=== PATIENT | male | born 1955 | race Caucasian/White ===

== ENCOUNTER 2019-11-24 15:18 | Inpatient (IN) | payer OTHER ==
--- NOTE | 2019-11-24 16:03 | BHS.RME ---
Substance Use & Tx History - Substance Use History Alcohol Substance amount: 6 nips Frequency of use: Daily Substance route: Oral Physical/Psych/Mental Status - Behavior General Behavior: Increased activity (restlessness, agitation) Eye Contact: Normal - Cooperativeness Cooperativeness: Cooperative - Thinking Thought Processes: Tight Thought content: Future oriented - Physical Health Problems Is patient presently having any pain?: No Does patient presently have any injuries (include location): No Does patient currently have a fever: No CIWA Nausea/Vomitin-No Nausea/No Vomiting Muscle Tremors: None Anxiety: 0-No Anxiety, at Ease Agitation: 0-Normal Activity Paroxysmal Sweats: No Perspiration Orientation: 0-Oriented Tacttile Disturbances: 0-None Auditory Disturbances: 0-None Visual Disturbances: 0-None Headache: 0-None Present CIWA-Ar Total Score: 0
--- NOTE | 2019-11-24 16:56 | HP ---
CIWA Score Nausea/Vomitin-No Nausea/No Vomiting Muscle Tremors: None Anxiety: 0-No Anxiety, at Ease Agitation: 0-Normal Activity Paroxysmal Sweats: No Perspiration Orientation: 0-Oriented Tacttile Disturbances: 0-None Auditory Disturbances: 0-None Visual Disturbances: 0-None Headache: 0-None Present CIWA-Ar Total Score: 0 - Admission Criteria [facility] Guidelines: Admission for Medically Managed Detox: Requires at least one of the followin. CIWA greater than 12 2. Seizures within the past 24 hours 3. Delirium tremens within the past 24 hours 4. Hallucinations within the past 24 hours 5. Acute intervention needed for co occurring medical disorder 6. Acute intervention needed for co occurring psychiatric disorder 7. Severe withdrawal that cannot be handled at a lower level of care (continued vomiting, continued diarrhea, abnormal vital signs) requiring intravenous medication and/or fluids 8. Admission ROS [facility] Chief Complaint: drinking too much Allergies/Adverse Reactions: Allergies Allergy/AdvReac Type Severity Reaction Status Date / Time No Known Allergies Allergy Verified 11/24/19 17:26 History of Present Illness: Patient is a 64 y/o male with past medical history of HTN who presents for detox from alcohol. Patient began drinking at age 14 and drinks 5-7 nips a day. Never more then 10. Last drink was yesterday. 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 Reports he has been sober in the past but then he starts drinking again. Patient states he has never been to rehab or detox before. Patient denies other drug use, denies smoking. Patients surgical history includes left hand and right hand. 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 Patient has medical comorbidities complicating his detox. Exam Limitations: No Limitations - Review of Systems Constitutional: Other (denies chills, fever, headache) EENT: reports: Other (denies tinnitus, visual problems) Respiratory: denies: Cough, Shortness of Breath, Wheezing Cardiac: denies: Chest Pain, Lightheadedness GI: denies: Diarrhea, Nausea, Vomiting Musculoskeletal: denies: Muscle Pain Neuro: denies: Seizure, Dizziness Hematology: denies: Anemia Psychiatric: denies: Depressed Patient History - Patient Medical History Hx Anemia: No Hx Asthma: No Hx Chronic Obstructive Pulmonary Disease (COPD): No Hx Cancer: No Hx Cardiac Disorders: No Hx Congestive Heart Failure: No Hx Hypertension: Yes Hx Hypercholesterolemia: No Hx Pacemaker: No HX Cerebrovascular Accident: No Hx Seizures: No Hx Dementia: No Hx Diabetes: No Hx Gastrointestinal Disorders: No Hx Liver Disease: No Hx Genitourinary Disorders: No Hx Sexually Transmitted Disorders: No Hx Renal Disease (ESRD): No Hx Thyroid Disease: No Hx Human Immunodeficiency Virus (HIV): No Hx Hepatitis C: No Hx Depression: No Hx Suicide Attempt: No Hx Bipolar Disorder: No Hx Schizophrenia: No - Patient Surgical History Past Surgical History: Yes Hx Neurologic Surgery: No Hx Cataract Extraction: No Hx Cardiac Surgery: No Hx Lung Surgery: No Hx Breast Surgery: No Hx Breast Biopsy: No Hx Abdominal Surgery: No Hx Appendectomy: No Hx Cholecystectomy: No Hx Genitourinary Surgery: No Hx Section: No Hx Orthopedic Surgery: Yes (left hand, right leg) Hx Hysterectomy: No Anesthesia Reaction: No - PPD History Previous Implant?: Yes (patient had vaccine in past so has positive tests) Documented Results: Positive w/o proof Implanted On Prior [facility] Admission?: No PPD to be Administered?: No - Smoking Cessation Smoking history: Never smoked - Substance & Tx. History Hx Alcohol Use: Yes (6 nips a day) - Substances abused Alcohol Substance route: Oral Frequency: Daily Amount used: 2 to 3 ounces Age of first use: 14 Date of last use: 11/23/19 Admission Physical Exam [facility] - Physical General Appearance: Yes: No Apparent Distress, Appropriately Dressed HEENTM: Yes: Normocephalic Respiratory: Yes: Normal Breath Sounds, No Respiratory Distress, No Accessory Muscle Use Neck: Yes: Trachea in good position Cardiology: Yes: Regular Rhythm, Regular Rate Abdominal: Yes: Normal Bowel Sounds, Flat Back: Yes: Normal Inspection Musculoskeletal: Yes: Within Normal Limits, full range of Motion Extremities: No: Pedal Edema Neurological: Yes: Fully Oriented, Alert, Normal Mood/Affect Lymphatic: Yes: Within Normal Limits - Diagnostic (1) Alcohol withdrawal Current Visit: Yes Status: Acute (2) Hypertension Current Visit: Yes Status: Acute Cleared for Admission S - Detox or Rehab [facility] Level of Care: Medically Managed Detox Regimen/Protocol: Librium Breathalyzer - Breathalyzer Breathalyzer: 0 Vital Signs - Vital Signs Vital signs refused: No Temperature: 98.2 F Temperature source: Oral Pulse Rate: 93 Respiratory Rate: 18 Blood Pressure: 170/109 BP Location: Left Arm - Height Height: 5 ft 5 in - Weight Weight: 148 kg - BMI Body Mass Index (BMI): 54.3 Urine Drug Screen - Test Device Lot number: [id number] Expiration date: 06/29/21 - Control Is test valid?: Yes - Results Drug screen NEGATIVE: Yes Inpatient Rehab Admission - Rehab Decision to Admit Inpatient rehab admission?: No
[2019-11-24] MEDS ORDERED: chlordiazePOXIDE HCL 10 MG CAPSULE PO PRN (17:04)
[2019-11-24] MEDS ORDERED: MAG HYDROX/AL HYDROX/SIMETH 30 ML UNIT-DOSE CUP PO PRN (17:04)
[2019-11-24] MEDS ORDERED: IBUPROFEN 400 MG TABLET (FP) PO PRN (17:04)
[2019-11-24] MEDS ORDERED: ACETAMINOPHEN 325 MG TABLET (FP) PO PRN ×2 (17:04)
[2019-11-24] MEDS ORDERED: BISMUTH SUBSALICYLATE 524 MG/30 ML UD PO PRN (17:04)
[2019-11-24] MEDS ORDERED: METHOCARBAMOL 500 MG TABLET PO PRN (17:04)
[2019-11-24] MEDS ORDERED: MAGNESIUM HYDROX 2400MG/30ML ORAL SUSPENSION 30 ML CUP PO PRN (17:04)
[2019-11-24] MEDS ORDERED: MENTHOL/PHENOL 1 EACH UD MM PRN (17:04)
[2019-11-24] MEDS ORDERED: ONDANSETRON *ODT* 4 MG TABLET SL PRN (17:04)
[2019-11-24] MEDS ORDERED: MAGNESIUM CITRATE 300 ML BOTTLE PO PRN (17:04)
[2019-11-24] MEDS ORDERED: PATIENT'S OWN MEDICATION (NON-FORMULARY) (Lisinopril/Hydrochlorothiazide [Lisinopril-Hctz PO SCH (17:15)
[2019-11-24] MEDS: LISINOPRIL 20 MG TABLET (FP) PO SCH (18:30)
[2019-11-24] MEDS: HYDROCHLOROTHIAZIDE 25 MG TABLET (FP) PO SCH (18:31)
[2019-11-24] MEDS: hydrOXYzine PAMOATE 25 MG CAPSULE (FP) PO SCH ×2 (18:31→22:45)
[2019-11-24] MEDS: PRENATAL VITAMINS W/ FOLIC ACID TABLET (FP) PO SCH (18:31)
[2019-11-24] MEDS ORDERED: MELATONIN 5 MG TABLETS PO SCH (22:00)
[2019-11-24] MEDS: chlordiazePOXIDE HCL 25 MG CAPSULE PO SCH (22:45)
[2019-11-24] MEDS: THIAMINE HCL 100 MG TABLET (FP) PO SCH (22:45)
[2019-11-25] MEDS: chlordiazePOXIDE HCL 25 MG CAPSULE PO SCH (06:44)
[2019-11-25] MEDS: hydrOXYzine PAMOATE 25 MG CAPSULE (FP) PO SCH (06:44)
[2019-11-25] MEDS: HYDROCHLOROTHIAZIDE 25 MG TABLET (FP) PO SCH (10:34)
[2019-11-25] MEDS: LISINOPRIL 20 MG TABLET (FP) PO SCH (10:34)
[2019-11-25] MEDS: PRENATAL VITAMINS W/ FOLIC ACID TABLET (FP) PO SCH (10:34)
[2019-11-25 10:52] LABS: HEMATOCRIT 40.6 % (35.4-49); HEMOGLOBIN 13.6 GM/dL (11.7-16.9); MCH 33.8 pg (25.7-33.7); MCHC 33.5 g/dl (32.0-35.9); MEAN CELL VOLUME 100.9 fl (80-96); MEAN PLT VOLUME 8.4 fl (7.5-11.1); PLATELET COUNT 177 K/MM3 (134-434); RBC 4.02 M/mm3 (4.00-5.60); RDW 13.2 % (11.9-15.9); WHITE BLOOD COUNT 6.2 K/mm3 (4.0-10.0)
[2019-11-25 11:06] LABS: ALBUMIN 3.3 g/dl (3.4-5.0); BILIRUBIN,TOTAL 1.4 mg/dL (0.2-1); BLOOD UREA NITROGEN 18.9 mg/dL (7-18); CREATININE 0.9 mg/dL (0.55-1.3); POTASSIUM 3.2 mmol/L (3.5-5.1); TOT PROT 6.8 g/dl (6.4-8.2)
[2019-11-25] MEDS ORDERED: MELATONIN 5 MG TABLETS PO PRN (11:37)
[2019-11-25] MEDS ORDERED: chlordiazePOXIDE HCL 10 MG CAPSULE PO PRN (11:38)
--- NOTE | 2019-11-25 11:42 | PN ---
[facility] CIWA - CIWA Score Nausea/Vomitin-No Nausea/No Vomiting Muscle Tremors: None Anxiety: 1-Mildly Anxious Agitation: 0-Normal Activity Paroxysmal Sweats: No Perspiration Orientation: 0-Oriented Tacttile Disturbances: 0-None Auditory Disturbances: 0-None Visual Disturbances: 0-None Headache: 0-None Present CIWA-Ar Total Score: 1 S Progress Note (SOAP) Subjective: pt states he is not feeling any withdrawals I am only here because my told me to go to rehab. I drink with my friend socially and my last nip was Friday or Friday. Objective: 11/25/19 11:40 Vital Signs Temperature 98.2 F 11/25/19 09:03 Pulse Rate 90 11/25/19 09:03 Respiratory Rate 20 11/25/19 09:03 Blood Pressure 132/76 11/25/19 09:03 O2 Sat by Pulse Oximetry (%) 97 11/25/19 09:03 Laboratory Tests 11/24/19 11/25/19 11/25/19 17:35 08:10 08:10 WBC 6.2 RBC 4.02 Hgb 13.6 Hct 40.6 MCV 100.9 H MCH 33.8 H MCHC 33.5 RDW 13.2 Plt Count 177 MPV 8.4 Sodium Potassium Chloride Carbon Dioxide Anion Gap BUN Creatinine Est GFR (CKD-EPI)AfAm Est GFR (CKD-EPI)NonAf Random Glucose Calcium Total Bilirubin AST ALT Alkaline Phosphatase Total Protein Albumin Syphilis Serology Non-reactive COVID-19 ([facility]) Not detected 11/25/19 08:10 WBC RBC Hgb Hct MCV MCH MCHC RDW Plt Count MPV Sodium 139 Potassium 3.2 L Chloride 102 Carbon Dioxide 31 Anion Gap 7 L BUN 18.9 H Creatinine 0.9 Est GFR (CKD-EPI)AfAm 105.72 Est GFR (CKD-EPI)NonAf 91.22 Random Glucose 141 H Calcium 9.0 Total Bilirubin 1.4 H AST 128 H ALT 121 H Alkaline Phosphatase 61 Total Protein 6.8 Albumin 3.3 L Syphilis Serology COVID-19 (NICKY) labs noted mild low potassium 3.2. kdur [id number] ordered elevated liver enzymes. encouraged fluids and continue with abstinence from alcohol. pt in agreement. aaox3 ambulating no acute distress Assessment: 11/25/19 11:41 no s/s of withdrawals noted. Plan: librium regimen modified. rox ordered d/c in am.
[2019-11-25 12:41] VITALS: BMI 54.3
[2019-11-25] MEDS: POTASSIUM CHLORIDE TABS 20 MEQ TABLET.ER (FP) PO SCH (12:47)
[2019-11-25] MEDS ORDERED: chlordiazePOXIDE 5 MG CAPSULE PO ONE (13:00)
[2019-11-25] MEDS: hydrOXYzine PAMOATE 25 MG CAPSULE (FP) PO PRN (18:13)
[2019-11-25] MEDS: THIAMINE HCL 100 MG TABLET (FP) PO SCH (22:48)
[2019-11-26] MEDS ORDERED: chlordiazePOXIDE 5 MG CAPSULE PO SCH (05:00)
[2019-11-26] MEDS ORDERED: chlordiazePOXIDE 5 MG CAPSULE PO ONE (05:00)
[2019-11-26] MEDS ORDERED: chlordiazePOXIDE HCL 10 MG CAPSULE PO ONE ×2 (05:00)
[2019-11-26] MEDS: hydrOXYzine PAMOATE 25 MG CAPSULE (FP) PO PRN (06:08)
[2019-11-26 06:22] VITALS: BP 146/100; PULSE 65; TEMP 96.9
[2019-11-26] MEDS: HYDROCHLOROTHIAZIDE 25 MG TABLET (FP) PO SCH (09:40)
[2019-11-26] MEDS: LISINOPRIL 20 MG TABLET (FP) PO SCH (09:40)
[2019-11-26] MEDS: POTASSIUM CHLORIDE TABS 20 MEQ TABLET.ER (FP) PO SCH (09:40)
[2019-11-26] MEDS: PRENATAL VITAMINS W/ FOLIC ACID TABLET (FP) PO SCH (09:40)
--- NOTE | 2019-11-26 14:52 | DS ---
[facility] Detox Discharge Summary Admission Date: 11/24/19 Discharge Date: 11/26/19 - History Present History: Alcohol Dependence - Physical Exam Results Vital Signs: Vital Signs Temperature 96.9 F L 11/26/19 05:45 Pulse Rate 65 11/26/19 05:45 Respiratory Rate 16 11/26/19 05:45 Blood Pressure 146/100 11/26/19 05:45 O2 Sat by Pulse Oximetry (%) 99 11/26/19 05:45 Pertinent Admission Physical Exam Findings: Vital Signs Temperature 96.9 F L 11/26/19 05:45 Pulse Rate 65 11/26/19 05:45 Respiratory Rate 16 11/26/19 05:45 Blood Pressure 146/100 11/26/19 05:45 O2 Sat by Pulse Oximetry (%) 99 11/26/19 05:45 Laboratory Tests 11/24/19 11/25/19 11/25/19 17:35 08:10 08:10 WBC 6.2 RBC 4.02 Hgb 13.6 Hct 40.6 MCV 100.9 H MCH 33.8 H MCHC 33.5 RDW 13.2 Plt Count 177 MPV 8.4 Sodium Potassium Chloride Carbon Dioxide Anion Gap BUN Creatinine Est GFR (CKD-EPI)AfAm Est GFR (CKD-EPI)NonAf Random Glucose Calcium Total Bilirubin AST ALT Alkaline Phosphatase Total Protein Albumin Syphilis Serology Non-reactive COVID-19 ([facility]) Not detected 11/25/19 08:10 WBC RBC Hgb Hct MCV MCH MCHC RDW Plt Count MPV Sodium 139 Potassium 3.2 L Chloride 102 Carbon Dioxide 31 Anion Gap 7 L BUN 18.9 H Creatinine 0.9 Est GFR (CKD-EPI)AfAm 105.72 Est GFR (CKD-EPI)NonAf 91.22 Random Glucose 141 H Calcium 9.0 Total Bilirubin 1.4 H AST 128 H ALT 121 H Alkaline Phosphatase 61 Total Protein 6.8 Albumin 3.3 L Syphilis Serology COVID-19 ([facility]ICKY) aaox3 ambulating no acute distress pt was Rx potassium and sent to his pharmacy electronically. pt is made aware pt was advised to see his PCP and follow up with current labs results. pt in agreement - Treatment Hospital Course: Detox Protocol Followed, Detoxed Safely, Responded well, Discharged Condition Good, Rehab Referral Accepted - Medication Discharge Medications: Ambulatory Orders Lisinopril/Hydrochlorothiazide [Lisinopril-Hctz 20-25 mg Tab] 1 each PO DAILY 11/24/19 Potassium Chloride [K-Dur -] 40 meq PO DAILY #3 tablet.er 11/26/19 - Diagnosis (1) Alcohol withdrawal Status: Acute Qualifiers: Complication of substance-induced condition: uncomplicated Qualified Code(s): F10.230 - Alcohol dependence with withdrawal, uncomplicated (2) Hypertension Status: Acute Qualifiers: Hypertension type: essential hypertension Qualified Code(s): I10 - Essential (primary) hypertension - AMA Did Patient Leave Against Medical Advice: No
[2019-11-27] MEDS ORDERED: chlordiazePOXIDE HCL 10 MG CAPSULE PO PRN
[2019-11-27] MEDS ORDERED: chlordiazePOXIDE HCL 10 MG CAPSULE PO SCH (05:00)
--- NOTE | 2019-11-27 08:41 | PN ---
Teaching Attending Note Name of Resident: Oliva Chong ATTENDING PHYSICIAN STATEMENT I saw and evaluated the patient. I reviewed the resident's note and discussed the case with the resident. I agree with the resident's findings and plan as documented. SUBJECTIVE: OBJECTIVE: ASSESSMENT AND PLAN: Agree with resident's findings and plan for detox.
[2019-11-28] MEDS ORDERED: chlordiazePOXIDE HCL 10 MG CAPSULE PO ONE (05:00)
== END 2019-11-26 09:50 | disposition home or self-care (01) | DRG 897 ==
LOC: YASAS 15:18 → Y6N 17:29
PROVIDERS: ADMIT Allergy & Immunology; ATTEND Allergy & Immunology
PROC: HZ2ZZZZ Detoxification Services for Substance Abuse Treatment (ICD-10-PCS; principal; 2019-11-24)
DX: F10.230 Alcohol dependence with withdrawal, uncomplicated (principal); I10 Essential (primary) hypertension; R74.0 Nonspecific elevation of levels of transaminase and lactic acid dehydrogenase [LDH]; R74.8 Abnormal levels of other serum enzymes
CPT/HCPCS: 36415; 80053; 85027; 86780; U0003